=== PATIENT | male | born 1995 | race Caucasian/White ===

== ENCOUNTER 2017-10-05 13:45 | Emergency (ER) | payer BC ==
[~2017-10-05] VITALS: Ht 177.8 cm; Wt 98.3 kg
[2017-10-05 13:57] VITALS: TEMP 36.7; Ht 177.8 cm; Wt 98.3 kg
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
[2017-10-05] MEDS ORDERED: CEPH500C PO (15:15)
[2017-10-05 15:33] VITALS: BP 152/77; PULSE 84; O2SAT 98
== END 2017-10-05 15:34 | disposition home or self-care (01) ==
LOC: C.EDB 13:48 → C.EDD 15:34
DX: S01.81XA Laceration without foreign body of other part of head, initial encounter (principal); W20.8XXA Other cause of strike by thrown, projected or falling object, initial encounter; Y93.83 Activity, rough housing and horseplay